=== PATIENT | female | born 1995 | race Two or more races ===

== ENCOUNTER 2024-03-21 19:57 | Emergency (ER) | payer OTHER ==
[~2024-03-21] VITALS: Ht 157.5 cm; Wt 48.5 kg
[2024-03-21] MEDS: ACETAMINOPHEN 325 MG TAB PO ONE (20:36)
[2024-03-21 20:58] LABS: Urine Bacteria FEW /hpf (None Seen); Urine Blood 2+ /uL (Negative); Urine Clarity Clear (Clear); Urine Color Yellow (Yellow); Urine Mucus FEW (None Seen); Urine Protein, UAD TRACE (Negative); Urine Specific Gravity 1.019 (1.001-1.035); Urine Squamous Epithelial Cell FEW /hpf (<5); Urine Urobilinogen 3 mg/dL (Negative); Urine WBC 4 /HPF (0-5); Urine pH 6.5 (5.0-9.0)
[2024-03-21 21:00] LABS: Basophils # (auto) 0 10 ^3/uL (0-0.2); Basophils % (auto) 0.3 % (0.0-2.0); Eosinophils # (auto) 0 10 ^3/uL (0-0.8); Eosinophils % (auto) 0.1 % (0.0-7.0); Hematocrit 41.6 % (36.0-46.0); Hemoglobin 14.4 g/dL (12.2-16.2); Lymphocytes # (auto) 0.8 10 ^3/uL (0.4-5.4); Lymphocytes % (auto) 25.9 % (10.0-50.0); Mean Corpuscular Hemoglobin 30.1 pg (28.0-32.0); Mean Corpuscular Hgb Conc. 34.5 g/dL (32.0-36.0); Mean Corpuscular Volume 87.1 fL (80.0-100.0); Monocytes # (auto) 0.4 10 ^3/uL (0-1.3); Monocytes % (auto) 11.3 % (0.0-12.0); Neutrophils % (auto) 62.4 % (37.0-80.0); Nucleated Red Blood Cells % 0.1 %; Platelet Count (auto) 191 10^3/uL (140-450); Red Blood Cells 4.78 10^6/uL (4.0-5.20); White Blood Cell 3.2 10^3/uL (4.4-10.8)
--- NOTE | 2024-03-21 21:34 | DVH ---
OBSTETRIC ULTRASOUND PRIOR TO 14 WEEKS CLINICAL INDICATION: vag bleed TECHNIQUE: Multiple grayscale ultrasound images were obtained of the pelvis via transabdominal appro ach for obstetric evaluation. Limited color Doppler and spectral Doppler acquisitions were also obtai savi. COMPARISON: None FINDINGS: Uterus: 10.8 x 7.1 x 8.6 cm. There is a single intrauterine gestational sac is visualized. A po le is visualized measuring 2.39 cm compatible with an estimated gestational age of 9 weeks, 1 days. cardiac activity is present with heart rate of 192 beats per minute. A normal yolk sac is pres ent. Right adnexa: right ovary 2.7 x 2.4 x 1.4 cm. Normal arterial blood flow in the ovary. No right adne xal mass seen. Left adnexa: left ovary is not visualized. No left adnexal mass seen. Other: Hypoechoic subchorionic hemorrhage measuring 3.0 x 4.0 x 1.4 cm IMPRESSION: 1. Single living intrauterine with an estimated gestational age of 9 weeks, 6 days, corre sponding to an estimated date of delivery of 10/18/2024. 2. Small subchorionic hemorrhage.
[2024-03-21 22:03] LABS: Calcium 10.3 mg/dL (8.7-10.4)
[2024-03-21 22:07] LABS: BUN/Creatinine Ratio 9.6 (10.0-20.0); Glucose 97 mg/dL (74-106)
[2024-03-21 22:22] LABS: Carbon Dioxide 27 mmol/L (20-31)
--- NOTE | 2024-03-21 22:24 | ED.PDOC ---
CHANGE ANALYST HPI Comments 28-year-old female complaining of vaginal bleeding which started this evening. States she was also been having abdominal cramping. States she went to her OB appointment yesterday and had ultrasound done, states that she was estimated nine weeks . She was told that her heart tones were mildly elevated. Patient is Chief Complaint: Vaginal Bleed Time Seen by MD: 20:10 Reviewed Notes: Nurses Notes Allergies: Coded Allergies: NO KNOWN ALLERGIES (Unverified , 03/21/24) Information Source: Patient Past Medical History PAST MEDICAL HISTORY: Denies Surgical History: Denies all surgeries ASSESSMENT EXPERT History: No Pertinent ASSESSMENT EXPERT History Constitutional: denies: chills, diaphoresis, fatigue, fever, malaise, sweats, weakness, others EENTM: denies: blurred vision, double vision, ear bleeding, ear discharge, ear drainage, ear pain, ear ringing, eye pain, eye redness, hearing loss, mouth pain, mouth swelling, nasal discharge, nose bleeding, nose congestion, nose pain, photophobia, tearing, throat pain, throat swelling, voice changes, others Respiratory: denies: cough, hemoptysis, orthopnea, SOB at rest, shortness of breath, SOB with excertion, stridor, wheezing, others Cardiovascular: denies: chest pain, dizzy spells, diaphoresis, Dyspnea on exertion, edema, irregular heart beat, left arm pain, lightheadedness, palpitations, PND, syncope, others Gastrointestinal: reports: abdominal pain; denies: abdomen distended, blood streaked bowels, constipated, diarrhea, dysphagia, difficulty swallowing, hematemesis, melena, nausea, poor appetite, poor fluid intake, rectal bleeding, rectal pain, vomiting, others Genitourinary: reports: abnormal vagina bleeding; denies: burning, dyspareunia, dysuria, flank pain, frequency, hematuria, incontinence, pain, , vagina discharge, urgency, others Neurological: denies: dizziness, fainting, headache, left sided numbness, left sided weakness, numbness, paresthesia, pre-existing deficit, right sided numbness, right sided weakness, seizure, speech problems, tingling, tremors, weakness, others Musculoskeletal: denies: back pain, gout, joint pain, joint swelling, muscle pain, muscle stiffness, neck pain, others Integumetry: denies: bruises, change in color, change in hair/nails, dryness, laceration, lesions, lumps, rash, wounds, others Allergic/Immunocompromised: denies: Difficulty Healing, Frequent Infections, Hives, Itching, others Physical Exam General Appearance: No Apparent Distress, Normal HEENT: Normal ENT Inspection, Pharynx Normal, TMs Normal Neck: Full Range of Motion, Non-Tender, Normal, Normal Inspection Respiratory: Chest Non-Tender, Lungs Clear, No Accessory Muscle Use, No Respiratory Distress, Normal Breath Sounds Cardiovascular: No Edema, No JVD, No Murmur, No Gallop, Normal Peripheral Pulses, Regular Rate/Rhythm Breast Exam: Deferred Gastrointestinal: No Organomegaly, Non Tender, No Pulsatile Mass, Normal Bowel Sounds, Soft Genitalia: Deferred Pelvic: Deferred Rectal: Deferred Extremities: No calf tenderness, Normal capillary refill, Normal inspection, Normal range of motion, Non-tender, No pedal edema Musculoskeletal : Apperance: Normal Neurologic: Alert, territory business manager II-XII nml as Tested, No Motor Deficits, Normal Affect, Normal Mood, No Sensory Deficits Cerebellar Function: Normal Reflexes: Normal Skin: Dry, Normal Color, Warm Lymphatic: No Adenopathy Was a procedure done? Was a procedure done?: No Differential Diagnosis (ASSESSMENT EXPERT) Vaginal Bleeding: - Complete, - Incomplete, - Inevitable, - Missed, - Threatened, Dysmenorrhea, Ectopic , Menorrhagia X-Ray, Labs, Meds, VS Vital Signs Date Time Temp Pulse Resp B/P (MAP) Pulse Ox O2 Delivery O2 Flow Rate FiO2 03/21/24 20:36 100.0 03/21/24 20:27 100.0 118 14 122/72 (89) 100 Lab Test 03/21/24 20:48 03/21/24 20:47 Range/Units White Blood Count 3.2 L 4.4-10.8 10^3/uL Red Blood Count 4.78 4.0-5.20 10^6/uL Hemoglobin 14.4 12.2-16.2 g/dL Hematocrit 41.6 36.0-46.0 % Mean Corpuscular Volume 87.1 80.0-100.0 fL Mean Corpuscular Hemoglobin 30.1 28.0-32.0 pg Mean Corpuscular Hemoglobin Concent 34.5 32.0-36.0 g/dL Red Cell Distribution Width 13.0 11.8-14.3 % Platelet Count 191 140-450 10^3/uL Mean Platelet Volume 8.9 6.9-10.8 fL Neutrophils (%) (Auto) 62.4 37.0-80.0 % Lymphocytes (%) (Auto) 25.9 10.0-50.0 % Monocytes (%) (Auto) 11.3 0.0-12.0 % Eosinophils (%) (Auto) 0.1 0.0-7.0 % Basophils (%) (Auto) 0.3 0.0-2.0 % Neutrophils # (Auto) 2.0 1.6-8.6 10 ^3/uL Lymphocytes # (Auto) 0.8 0.4-5.4 10 ^3/uL Monocytes # (Auto) 0.4 0-1.3 10 ^3/uL Eosinophils # (Auto) 0 0-0.8 10 ^3/uL Basophils # (Auto) 0 0-0.2 10 ^3/uL Nucleated Red Blood Cells 0.1 % Sodium Level Pending Potassium Level Pending Chloride Level Pending Carbon Dioxide Level Pending Anion Gap Pending Blood Urea Nitrogen Pending Creatinine Pending Glomerular Filtration Rate Calc Pending BUN/Creatinine Ratio Pending Serum Glucose Pending Calcium Level Pending Beta HCG, Quantitative Pending Urine Color Yellow Yellow Urine Clarity Clear Clear Urine pH 6.5 5.0-9.0 Urine Specific [place] 1.019 1.001-1.035 Urine Protein Trace H Negative Urine Ketones 3+ H Negative Urine Blood 2+ H Negative /uL Urine Nitrite Negative Negative Urine Bilirubin Negative Negative Urine Urobilinogen 3 H Negative mg/dL Urine Leukocyte Esterase Trace Negative /uL Urine RBC 3 0 - 4 /hpf Urine Microscopic WBC 4 0-5 /HPF Urine Squamous Epithelial Cells Few <5 /hpf Urine Bacteria Few H None Seen /hpf Urine Mucus Few None Seen Urine Glucose Normal Normal mg/dL Current Medications Medications (Trade) Dose Ordered Sig/Neel Route Start Time Stop Time Status Last Admin Acetaminophen (Tylenol Tablet) 650 mg ONCE ONCE PO 03/21/24 20:30 03/21/24 20:31 DC 03/21/24 20:36 X-Ray, Labs, Meds, VS Comment Imaging: X-rays and CT scans were reviewed and interpreted by this provider, imaging shows no fractures and no pathological disease. Pending radiology rev iew. Laboratory: Labs reviewed and interpreted by this provider. No significant abnormalities noted. Patient has prior medical visits reviewed. Med reconciliation performed Vital signs reviewed Time of 1ST Reevaluation: 22:24 Reevaluation 1ST: Improved Patient Education/Counseling: Diagnosis, Treatment, Need For Follow Up (Follow up with OBGYN tomorrow) Family Education/Counseling: Diagnosis Departure 1 Departure Time of Disposition: 22:23 Impression: Primary Impression: First trimester Additional Impression: Subchorionic hemorrhage in first trimester Disposition: 01 HOME / SELF CARE / HOMELESS Condition: Fair Discharged With: Self Comments Follow up with OBGYN tomorrow Critical Care Note Critical Care Time?: No Stability Stability form required: No Heart Score Heart Score: Heart Score Response (Comments) Value History N/A 0 EKG N/A 0 Age N/A 0 Risk Factors N/A 0 Troponin N/A 0 Total 0 ROSA [id number] Mar 21, 2024 22:24
[2024-03-21 22:27] LABS: Blood Urea Nitrogen 5 mg/dL (9-23); Chloride 97 mmol/L (98-107); Potassium 2.9 mmol/L (3.5-5.1); Sodium 135 mmol/L (136-145)
[2024-03-21 22:56] VITALS: BP 97/56; PULSE 98; RESP 16; TEMP 98.2; O2SAT 100
[2024-03-21] MEDS: POTASSIUM EFFERVESENT TAB 25 MEQ PO ONE (23:09)
[2024-03-21 23:10] LABS: Anion Gap 11 (5-15)
== END 2024-03-21 23:13 | disposition home or self-care (01) ==
LOC: ER 20:04
DX: O20.8 Other hemorrhage in early pregnancy (principal); R10.2 Pelvic and perineal pain; Z3A.09 9 weeks gestation of pregnancy
CPT/HCPCS: 36415; 76801; 80048; 81001; 84702; 85025